=== PATIENT | female | born 1990 | race American Indian/Alaskan Native ===

== ENCOUNTER 2017-03-20 12:40 | Emergency (ER) | payer MEDICAID ==
[2017-03-20 13:06] VITALS: BP 107/69
[2017-03-20 13:26] LABS: Basophils % (Auto) 0.3 % (0.0-1.8); Eosinophils % (Auto) 0.2 % (0.0-4.3); Hematocrit 35.8 % (30.3-42.9); Hemoglobin 11.7 gm/dl (10.1-14.3); Mean Corpuscular HGB Conc 33 % (30-34); Mean Corpuscular Hemoglobin 28 pg (28-32); Mean Corpuscular Volume 86 fl (79-97); Platelet Count 205 K/mm3 (140-440); Red Blood Count 4.15 M/mm3 (3.65-5.03); Red Cell Distribution Width 14.2 % (13.2-15.2); White Blood Count 5.8 K/mm3 (4.5-11.0)
[2017-03-20 14:12] LABS: Anion Gap 22 mmol/L; BUN/Creatinine Ratio 12.85; Blood Urea Nitrogen 9 mg/dL (7-17); Calcium 9.1 mg/dL (8.4-10.2); Carbon Dioxide 20 mmol/L (22-30); Chloride 105.5 mmol/L (98-107); Glucose 91 mg/dL (65-100); Potassium 3.8 mmol/L (3.6-5.0); Sodium 144 mmol/L (137-145)
[2017-03-20 15:35] LABS: Urine Drugs of Abuse Note Disclamer
[2017-03-20 15:57] LABS: Bacteria,Urine 1+ /HPF (Negative); Bilirubin,Urine NEG (Negative); Blood,Urine LG (Negative); Ketones,Urine 20 mg/dL (Negative); Leukocyte Esterase,Urine NEG (Negative); Mucus,Urine FEW /HPF; Nitrite,Urine NEG (Negative); Protein,Urine <15 mg/dL mg/dL (Negative); Urobilinogen,Urine < 2.0 mg/dL (<2.0)
[2017-03-20 15:58] LABS: RBC,Urine > 182.0 /HPF (0.0-6.0)
--- NOTE | 2017-03-26 10:19 | ED Elopement Review ---
ED Pt Elopement review - Results review Lab results: Laboratory Tests 03/20/17 03/20/17 03/20/17 13:09 13:09 13:10 WBC RBC Hgb Hct MCV MCH MCHC RDW Plt Count Lymph % (Auto) [place] % (Auto) Eos % (Auto) Baso % (Auto) Lymph # [place] # Eos # Baso # Seg Neutrophils % Seg Neutrophils # Sodium 144 Potassium 3.8 Chloride 105.5 Carbon Dioxide 20 L Anion Gap 22 BUN 9 Creatinine 0.7 Estimated GFR > 60 BUN/Creatinine Ratio 12.85 Glucose 91 Calcium 9.1 HCG, Qual Urine Color Yellow Urine Turbidity Clear Urine pH 6.0 Ur Specific [place] 1.018 Urine Protein <15 mg/dl Urine Glucose (UA) Neg Urine Ketones 20 Urine Blood Lg Urine Nitrite Neg Urine Bilirubin Neg Urine Urobilinogen < 2.0 Ur Leukocyte Esterase Neg Urine WBC (Auto) 3.0 Urine RBC (Auto) > 182.0 U Epithel Cells (Auto) 3.0 Urine Bacteria (Auto) 1+ Urine Mucus Few Urine Opiates Screen Presumptive negative Urine Methadone Screen Presumptive negative Ur Barbiturates Screen Presumptive negative Ur Phencyclidine Scrn Presumptive negative Ur Amphetamines Screen Presumptive negative U Benzodiazepines Scrn Presumptive negative Urine Cocaine Screen Presumptive negative U Marijuana (THC) Screen Presumptive positive Drugs of Abuse Note Disclamer Plasma/Serum Alcohol 03/20/17 03/20/17 03/20/17 13:10 13:10 13:10 WBC 5.8 RBC 4.15 Hgb 11.7 Hct 35.8 MCV 86 MCH 28 MCHC 33 RDW 14.2 Plt Count 205 Lymph % (Auto) 31.6 [place] % (Auto) 8.9 H Eos % (Auto) 0.2 Baso % (Auto) 0.3 Lymph # 1.8 [place] # 0.5 Eos # 0.0 Baso # 0.0 Seg Neutrophils % 59.0 Seg Neutrophils # 3.4 Sodium Potassium Chloride Carbon Dioxide Anion Gap BUN Creatinine Estimated GFR BUN/Creatinine Ratio Glucose Calcium HCG, Qual Negative Urine Color Urine Turbidity Urine pH Ur Specific [place] Urine Protein Urine Glucose (UA) Urine Ketones Urine Blood Urine Nitrite Urine Bilirubin Urine Urobilinogen Ur Leukocyte Esterase Urine WBC (Auto) Urine RBC (Auto) U Epithel Cells (Auto) Urine Bacteria (Auto) Urine Mucus Urine Opiates Screen Urine Methadone Screen Ur Barbiturates Screen Ur Phencyclidine Scrn Ur Amphetamines Screen U Benzodiazepines Scrn Urine Cocaine Screen U Marijuana (THC) Screen Drugs of Abuse Note Plasma/Serum Alcohol < 0.01 - Call Back decision Pt Call Back Decision: Call pt to return to ED [facility] (patient endorsed suicidality, should be called back right away)
== END 2017-03-21 02:59 | disposition left against medical advice (07) ==
LOC: ED 12:40
DX: R45.851 Suicidal ideations (principal); Z53.21 Procedure and treatment not carried out due to patient leaving prior to being seen by health care provider; F17.200 Nicotine dependence, unspecified, uncomplicated; F12.10 Cannabis abuse, uncomplicated
CPT/HCPCS: 36415; 80048; 80307; 81001; 84703; 85025; G0480; 80320

== ENCOUNTER 2017-11-11 20:17 | Emergency (ER) | payer MEDICAID ==
--- NOTE | 2017-11-11 23:26 | Emergency Department Report ---
ED Psych HPI - General Chief Complaint: Psych Stated Complaint: MH EVAL Time Seen by Provider: 11/11/17 23:05 Source: patient, EMS Mode of arrival: Ambulatory - Related Data Allergies Allergy/AdvReac Type Severity Reaction Status Date / Time No Known Allergies Allergy Verified 03/20/17 13:08 ED Review of Systems ROS: Stated complaint: MH EVAL Other details as noted in HPI ED Past Medical Hx - Past Medical History Previous Medical History?: Yes Hx Psychiatric Treatment: Yes (adjustment disorder) - Surgical History Past Surgical History?: Yes Additional Surgical History: x 2 - Social History Smoking Status: Never Smoker Substance Use Type: Marijuana ED Physical Exam - General Limitations: No Limitations ED Course Vital Signs 11/11/17 23:00 Temperature 97.6 F Pulse Rate 86 Respiratory 18 Rate Blood Pressure 103/62 O2 Sat by Pulse 100 Oximetry Critical care attestation.: If time is entered above; I have spent that time in minutes in the direct care of this critically ill patient, excluding procedure time. ED Disposition Clinical Impression: Suicide attempt Major depression, recurrent Qualifiers: Active/Remission status: remission status unspecified Qualified Code(s): F33.9 - Major depressive disorder, recurrent, unspecified Disposition: DC/TX-65 PSY HOSP/PSY UNIT Is pt being admited?: Yes Does the pt Need Aspirin: No Condition: Critical Referrals: YESENIA ORTEGA MD [Primary Care Provider] - 3-5 Days Time of Disposition: 02:25
[2017-11-11 23:59] LABS: HCG Qualitative,Urine Negative (Negative)
[2017-11-12] LABS: Bilirubin,Urine NEG (Negative); Blood,Urine NEG (Negative); Color,Urine Yellow (Yellow)
[2017-11-12 00:01] LABS: Bacteria,Urine 1+ /HPF (Negative); Hyaline Casts,Urine 1 /LPF; Mucus,Urine 3+ /HPF; Nitrite,Urine NEG (Negative)
[2017-11-12 00:22] LABS: Amphetamine Screen,Urine PRESUMPTIVE NEGATIVE; Benzodiazepines Screen,Urine PRESUMPTIVE NEGATIVE; Cannabinoid Screen,Urine PRESUMPTIVE NEGATIVE; Cocaine Screen,Urine PRESUMPTIVE NEGATIVE; Methadone Screen,Urine PRESUMPTIVE NEGATIVE; Opiate Screen,Urine PRESUMPTIVE NEGATIVE
[2017-11-12] MEDS ORDERED: MOTRIN PO ONE (03:06)
--- NOTE | 2017-11-12 03:36 | XRay Report ---
FINAL REPORT EXAM: XR HAND 2V RT HISTORY: hand pain TECHNIQUE: AP and lateral views of the right hand were obtained. FINDINGS: There is no evidence of fracture or dislocation. There is no evidence of arthritic changes. The wrist joint appears normal. The soft tissues appear normal. IMPRESSION: Within normal limits.
[2017-11-12 03:40] LABS: BUN/Creatinine Ratio 16; Blood Urea Nitrogen 13 mg/dL (7-17); Calcium 8.9 mg/dL (8.4-10.2); Hemolysis Index 4
[2017-11-12 03:49] LABS: Basophils % (Auto) 0.4 % (0.0-1.8); Eosinophils % (Auto) 0.2 % (0.0-4.3); Hematocrit 33.9 % (30.3-42.9); Hemoglobin 11.2 gm/dl (10.1-14.3); Lymphocytes # (Auto) 2.1 K/mm3 (1.2-5.4); Lymphocytes % (Auto) 30.1 % (13.4-35.0); Mean Corpuscular HGB Conc 33 % (30-34); Mean Corpuscular Hemoglobin 28 pg (28-32); Mean Corpuscular Volume 85 fl (79-97); Monocytes # (Auto) 0.7 K/mm3 (0.0-0.8); Monocytes % (Auto) 10.3 % (0.0-7.3); Platelet Count 244 K/mm3 (140-440); Red Cell Distribution Width 14.3 % (13.2-15.2)
[2017-11-12] MEDS ORDERED: AMBIEN PO PRN (06:28)
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
[2017-11-12] MEDS: ZOLOFT PO SCH (13:36)
[2017-11-12] MEDS: VISTARIL PO PRN (14:50)
[2017-11-13] MEDS: VISTARIL PO PRN ×2 (02:10→22:15)
[2017-11-13] MEDS: ZOLOFT PO SCH (10:56)
[2017-11-14] MEDS: ZOLOFT PO SCH (11:00)
--- NOTE | 2017-11-14 13:51 | Progress Note ---
Subjective - Reason for Consult Consult date: 11/14/17 Reason for consult: Psychiatry Follow-up - Chief Complaint Chief complaint: "I have done some reflecting" 26 y.o. AA female presenting to [facility] for SI's and attempt. Today the patient is calm and cooperative during the assessment. The patient stated that she want to continue to see a psychiatrist/therapist once discharged. She stated that her life has a lot of "holes" that need to be fulled. She denies SI/HI's and AVH's. She denies any side effects of her medication. Mental Status Exam - Vital signs Last Vital Signs Temp 98.6 F 11/13/17 22:00 Pulse 72 11/13/17 22:00 Resp 18 11/14/17 11:44 BP 116/68 11/13/17 22:00 Pulse Ox 97 11/14/17 11:44 - Exam Narrative exam: MSE: Appearance: calm, cooperative Behavior: regular eye contact Speech: regular rate and tone Mood: "better" Affect: congruent to mood Thought Process: circumstantial Thought Content: denies SI/HI's and AVH's Motor Activity: ambulatory Cognition: A/O x 3 Insight: variable Judgment: variable Assessment and Plan Impression: MDD, Severe Type. Today the patient is calm and cooperative during the assessment. DDx: R/O Bipolar Recommendation/Plan: Continue 1013 with placement to inpatient psy services. Continue Zoloft 50 mg PO daily for depression and Vistaril 25 mg PO Q6hrs for anxiety. Discussed possible suicidality/medication induced pablo with patient reference Zoloft.
[2017-11-15] MEDS: VISTARIL PO PRN (00:33)
[2017-11-15] MEDS: ZOLOFT PO SCH (10:57)
--- NOTE | 2017-11-15 13:12 | Progress Note ---
Subjective - Reason for Consult Consult date: 11/15/17 Reason for consult: Psychiatry Follow-up - Chief Complaint Chief complaint: "Hello" 26 y.o. AA female presenting to [facility] for SI's and attempt. Today the patient is calm and cooperative during the assessment. She stated that she was emotional overnight thinking about her actions prior to her admission. She stated, "I definitely need to continue to see a professional." She denies SI/HI's and AVH' s. She denies any side effects of her medication. Mental Status Exam - Vital signs Last Vital Signs Temp 98.3 F 11/15/17 11:15 Pulse 77 11/15/17 11:15 Resp 20 11/15/17 11:15 BP 101/43 11/15/17 11:15 Pulse Ox 99 11/14/17 22:00 - Exam Narrative exam: MSE: Appearance: calm, cooperative Behavior: regular eye contact Speech: regular rate and tone Mood: "better" Affect: congruent to mood Thought Process: circumstantial Thought Content: denies SI/HI's and AVH's Motor Activity: ambulatory Cognition: A/O x 3 Insight: fair Judgment: fair Assessment and Plan Impression: MDD, Severe Type. Today the patient is calm and cooperative during the assessment. DDx: R/O Bipolar DO Recommendation/Plan: Evaluate 1013 in 24 hours to determine proper dispo. Continue Zoloft 50 mg PO daily for depression and Vistaril 25 mg PO Q6hrs for anxiety. Discussed possible suicidality/medication induced pablo with patient reference Zoloft.
[2017-11-16] MEDS: VISTARIL PO PRN ×3 (00:50→16:42)
[2017-11-16] MEDS: ZOLOFT PO SCH (09:33)
--- NOTE | 2017-11-16 16:40 | Progress Note ---
Subjective - Reason for Consult Consult date: 11/16/17 Reason for consult: follow up - Chief Complaint Chief complaint: "Hello" 26 y.o. AA female presenting to [facility] for SI's and attempt. Today the patient is calm and cooperative during the assessment. She stated that she was emotional overnight thinking about her actions prior to her admission. She stated, "The treatment I was getting wasn't working." She is scheduled to transfer to [facility] today. She denies SI/HI's and AVH's. She denies any side effects of her medication. Mental Status Exam - Vital signs Last Vital Signs Temp 97.9 F 11/15/17 21:49 Pulse 64 11/15/17 21:49 Resp 16 11/15/17 21:49 BP 115/65 11/15/17 21:49 Pulse Ox 100 11/15/17 21:49 - Exam Orientation: time, place, person Affect: anxious Mood: congruent with affect Thought content: other (no SI/HI) Thought Process: Intact Perceptions: none Speech: normal rate and pattern Concentration: focused Motor activity: normal Level of consciousness: alert Memory: Intact Sleep Symptoms: None Interaction: cooperative Assessment and Plan Impression: MDD, Severe Type. Today the patient is calm and cooperative during the assessment. DDx: R/O Bipolar DO Recommendation/Plan: She is scheduled to transfer to [facility] later today. Continue Zoloft 50 mg PO daily for depression and Vistaril 25 mg PO Q6hrs for anxiety. Discussed possible suicidality/medication induced pablo with patient reference Zoloft.
[2017-11-16 21:13] VITALS: BP 115/66
== END 2017-11-16 20:50 ==
LOC: ED 20:17 → EEVIPCON 20:17 → ED 11-16 20:50
DX: F32.9 Major depressive disorder, single episode, unspecified (principal); R45.851 Suicidal ideations; F43.20 Adjustment disorder, unspecified; F12.10 Cannabis abuse, uncomplicated
CPT/HCPCS: 36415; 73120; 80048; 80307; 81001; 81025; 85025; 99285; G0480; 80320; Q0177

== ENCOUNTER 2019-02-10 10:22 | Outpatient (CLI) | payer MEDICAID ==
--- NOTE | 2019-02-10 14:01 | Ultrasound Report ---
ULTRASOUND OB LIMITED History: Leakage of fluid Technique: Transabdominal ultrasound with Doppler interrogation. Gestation: Single Position: Cephalic Amniotic Fluid: Normal DIAMOND = 10.6 cm Heart Rate: 148 BPM
[2019-02-10 20:46] VITALS: BP 111/64
== END 2019-02-10 13:01 | disposition home or self-care (01) ==
LOC: TRG 10:22
PROVIDERS: ATTEND Obstetrics & Gynecology
DX: O47.1 False labor at or after 37 completed weeks of gestation (principal); O99.513 Diseases of the respiratory system complicating pregnancy, third trimester; J45.909 Unspecified asthma, uncomplicated; Z3A.39 39 weeks gestation of pregnancy
CPT/HCPCS: 76815

== ENCOUNTER 2019-12-30 08:51 | Emergency (ER) | payer SELFPAY ==
[2019-12-30 12:27] LABS: Basophils % (Auto) 0.4 % (0.0-1.8); Eosinophils % (Auto) 0.2 % (0.0-4.3); Hematocrit 33.7 % (30.3-42.9); Hemoglobin 10.7 gm/dl (10.1-14.3); Lymphocytes # (Auto) 1.8 K/mm3 (1.2-5.4); Mean Corpuscular HGB Conc 32 % (30-34); Mean Corpuscular Volume 78 fl (79-97); Monocytes # (Auto) 0.6 K/mm3 (0.0-0.8); Monocytes % (Auto) 10.6 % (0.0-7.3); Platelet Count 281 K/mm3 (140-440); Red Blood Count 4.35 M/mm3 (3.65-5.03); Red Cell Distribution Width 17.4 % (13.2-15.2)
[2019-12-30 12:48] LABS: Alanine Aminotransferase 17 units/L (7-56); Albumin 4.2 g/dL (3.9-5); BUN/Creatinine Ratio 16; Blood Urea Nitrogen 13 mg/dL (7-17); Calcium 9.3 mg/dL (8.4-10.2); Hemolysis Index 0
[2019-12-30 12:55] LABS: Bilirubin,Urine NEG (Negative); Blood,Urine LG (Negative); Color,Urine Amber (Yellow); Mucus,Urine 3+ /HPF; Urobilinogen,Urine < 2.0 mg/dL (<2.0)
[2019-12-30 13:04] LABS: Amphetamine Screen,Urine PRESUMPTIVE NEGATIVE; Benzodiazepines Screen,Urine PRESUMPTIVE NEGATIVE; Cocaine Screen,Urine PRESUMPTIVE NEGATIVE; Methadone Screen,Urine PRESUMPTIVE NEGATIVE; Opiate Screen,Urine PRESUMPTIVE NEGATIVE
[2019-12-30 13:29] LABS: Cannabinoid Screen,Urine PRESUMPTIVE POSITIVE
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
[2019-12-30] MEDS: SERTRALINE 50 MG TAB PO SCH (17:05)
[2019-12-30] MEDS ORDERED: DOXEPIN 10 MG CAP PO SCH (22:00)
[2019-12-31] MEDS: SERTRALINE 50 MG TAB PO SCH (10:31)
--- NOTE | 2019-12-31 12:03 | Progress Note ---
Subjective - Reason for Consult Consult date: 12/31/19 Reason for consult: suicidal thoughs - Chief Complaint Chief complaint: During my interview with the patient today, she is lying in bed awake. She is dressed appropriately. She is smiling. She is pleasant, calm and cooperative. She makes good eye contact. The patient states she "feels good." She says "I actually slept good and had time to think." She denies SI/HI. She states, "no, I'm not going to harm myself. You won't see my back in here." The patient asks for "resources for therapy." She denies hallucinations of any kind. The patient also denies any fear of being discharged home or any feelings of endangerment. She says her "appetite was better today." ROS: Constitutional: Negative for weight loss ENT: Negative for stridor Respiratory: Negative for cough or hemoptysis All other systems reviewed and are negative MENTAL STATUS General Appearance: Dressed appropriately Behavior: pleasant, calm and cooperative Mood: "good" Affect: Congruent Thought Process: Goal-directed Speech: Normal tone and pace Suicidal Ideation: Denies Homicidal Ideation: Denies Hallucinations: Denies Delusions: None elicited Insight and Judgment: Normal Memory/Cognition: Good Diagnoses: Major Depressive Disorder Plan Zoloft 50mg po daily Doxepoin 10mg o qhs Medical: Per primary Sitter: Defer to primary Disposition: The patient does not meet the requirement for acute hospitalization at this time. She may discharge home once medically cleared. The patient understands that if SI/HI or fear of endangerment were to return, she is to seek immediate assistance including but not limited to, suicide hotline, 1, and/or ER. The treatment plan has been discussed with Ms. Palacio, including benefits and si de effects of medications. She verbalizes understanding and agreement of plan. The order dispatcher chief is to give the patient outpatient resources for psychiatry and cognitive behavior therapy. Please follow up with outpatient psychiatry or primary care in 7 to 14 days. Will sign off. Please call with any questions or concerns. Thank you for this consult. Mental Status Exam - Vital signs Last Vital Signs Temp 98.5 F 12/30/19 09:02 Pulse 76 12/30/19 11:19 Resp 18 12/30/19 11:19 BP 127/70 12/30/19 11:19 Pulse Ox 100 12/30/19 11:19
[2019-12-31 14:11] VITALS: BP 121/76
== END 2019-12-31 14:11 | disposition home or self-care (01) ==
LOC: ED 08:51 → EEVIPCON 08:51 → ED 12-31 14:11
DX: F32.9 Major depressive disorder, single episode, unspecified (principal); R45.851 Suicidal ideations; F12.10 Cannabis abuse, uncomplicated; Z98.890 Other specified postprocedural states; Z79.1 Long term (current) use of non-steroidal anti-inflammatories (NSAID); Z79.899 Other long term (current) drug therapy
CPT/HCPCS: 36415; 80053; 80307; 80320; 81001; 84703; 85025; 87086; G0480